=== PATIENT | female | born 1975 | race Caucasian/White ===

== ENCOUNTER 2020-05-24 08:34 | Emergency (ER) | payer OTHER, SELFPAY ==
[2020-05-24 08:40] VITALS: BP 128/71; PULSE 63; RESP 22; TEMP 37; O2SAT 100; BMI 27.4
--- NOTE | 2020-05-24 08:58 | DI.RAD.S_ITS ---
PROCEDURE: XR CHEST 1V INDICATIONS: chest pain TECHNIQUE: One view of the chest was acquired. COMPARISON: [facility], , CHEST 1VW (PORTABLE), 10/23/2011, 15:04. FINDINGS: Surgical changes and devices: None. Lungs and pleura: Lungs are clear. No pleural effusions or pneumothorax. Mediastinum: Mediastinal contours appear normal. Heart size is normal. Bones and chest wall: No suspicious bony lesions. There is calcific tendinitis noted in the right shoulder. IMPRESSION: 1. No acute cardiopulmonary disease. Dictated by: Oj Esteban M.D. on 05/24/2020 at 9:26 Approved by: Oj Esteban M.D. on 05/24/2020 at 9:27
[2020-05-24 09:06] LABS: Add Manual Diff / Slide Review NO; Basophils Absolute Auto 0 /uL (0-100); Basophils Percent Auto 0.5 % (0-2); Eosinophils Absolute Auto 100 /uL (0-450); Eosinophils Percent Auto 1.5 % (2-4); Hematocrit 39.5 % (36-46); Hemoglobin 13.7 g/dL (12.0-16.0); Lymphocytes Absolute Auto 1800 /uL (1100-4500); Lymphocytes Percent Auto 29.8 % (25-40); Mean Corpuscular HGB Conc 34.6 % (30-36); Mean Corpuscular Volume 89.6 fL (80-100); Monocytes Absolute Auto 500 /uL (0-900); Monocytes Percent Auto 9.2 % (3-14); Neutrophils Absolute Auto 3500 /uL (1500-7000); Platelet Count 187 X10^3/uL (150-400); Red Blood Cell Count 4.41 X10^6/uL (4.0-5.2); Red Cell Distribution Width 13.3 % (11.6-14.8)
[2020-05-24 09:07] LABS: Prothrombin Time 11.3 SECONDS (10.1-12.7)
[2020-05-24 09:09] LABS: PTT Partial Thromboplastin Tim 36 SECONDS (26.4-36.2)
[2020-05-24 09:12] LABS: Alanine Aminotransferase 35 IU/L (<35); Albumin 4.3 g/dL (3.5-5.0); Albumin Globulin Ratio 1.3 (1.0-2.8); Alkaline Phosphatase 90 U/L (38-126); Aspartate Aminotransferase 22 IU/L (14-36); BUN Creatinine Ratio 16.8 (6-22); Bilirubin Total 0.4 mg/dL (0.2-1.3); Blood Urea Nitrogen 16 mg/dL (7-17); Calcium 8.9 mg/dL (8.4-10.2); Carbon Dioxide 23 mmol/L (22-32); Chloride 107 mmol/L (98-107); Creatine Kinase 58 U/L (30-135); Estimated Glomerular Filt Rate > 60.0 mL/min (>60); Globulin 3.4 g/dL (1.7-4.1); Glucose 96 mg/dL (70-100); HEMOLYSIS < 15 (0-50); Lipase 83 U/L (23-300); Potassium 3.9 mmol/L (3.4-5.1); Sodium 138 mmol/L (137-145); Total Protein 7.7 g/dL (6.3-8.2)
[2020-05-24 09:20] VITALS: PULSE 62; O2SAT 100
[2020-05-24] MEDS: KETOROLAC 60 MG/2 ML VIAL 15 MG IV (09:20)
[2020-05-24 09:23] LABS: Troponin I < 0.012 ng/mL (0.01-0.034)
--- NOTE | 2020-05-24 09:24 | ED.CHESTPAIN ---
HPI - Chest Pain General Chief Complaint: Chest Pain Stated Complaint: chest pain Time Seen by Provider: 05/24/20 08:53 Source: patient Mode of arrival: Family Vehicle Limitations: no limitations History of Present Illness HPI narrative: 44-year-old woman with a history of hypertension, migraines and mild asthma presents with sharp left-sided chest pain. She 1st noted when she got up this morning at 3:00 a.m. for her usual work shift. She notes sharp pain that begins from the sternum and radiates out around her left breast but not to her back or her neck. She notes some dull discomfort radiating down the left shoulder and left arm. Pain is worsened with taking a deep breath but not specifically with position. She notes increasing dyspnea and milder diaphoresis over the course of the morning. 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 She does note that she has had similar symptoms over the past 2 months (2 episodes), but both times resolved within a few minutes. She also notes that the exertion of walking to her car in into the emergency department has not caused any distress. She is screened every 2-3 weeks for Covid at work and has been negative repeatedly with no significant Covid symptoms today Related Data Home Medications Medication Instructions Recorded Confirmed albuterol sulfate 90 mcg/actuation 2 puff INHALATION Q4-6H PRN 03/16/18 03/16/18 aerosol inhaler sumatriptan succinate 100 mg tablet 100 mg PO ONCE 03/16/18 03/16/18 lisinopril 10 mg tablet 10 mg PO DAILY 06/07/18 06/07/18 Previous Rx's Medication Instructions Recorded naratriptan 2.5 mg tablet 2.5 mg PO .COMPLEX PRN #12 tab 06/07/18 erenumab-aooe 140 mg/mL 140 mg SUBCUT QMONTH #1 ml 05/25/19 subcutaneous auto-injector topiramate 25 mg tablet 25 mg PO DAILY 7 Days #120 tab 10/30/19 Allergies Allergy/AdvReac Type Severity Reaction Status Date / Time Penicillins Allergy Mild Hives/Rash Verified 10/30/19 13:14 Review of Systems Review of Systems Narrative: Pertinent positive and negative findings as per HPI Remainder of review of systems is otherwise unremarkable for Constitutional: Fevers, chills, weakness ENT: No sore throat, neck pain, ear pain GI: Nausea, vomiting, diarrhea, change in bowel habits, black or bloody stools : Dysuria, hematuria, flank pain MS: Muscle weakness, numbness, joint swelling or warmth Skin: Rashes, nonhealing lesions Neuro: Syncope, dizziness, tingling Patient History Medical History Addiction (Inactive) Depression (Acute) Hypertension (Acute) Migraine (Acute) Social History Smoking Status: Current every day smoker Smoking Status: Current every day smoker tobacco type: vaping alcohol intake frequency: 0-2 drinks per day Substance Use Type: does not use Exam Narrative Exam Narrative: General: Healthy appearing, in no acute distress. Able to give a complete and coherent history. Well-nourished well-developed HEENT: Moist mucous membranes, normal sclera with reactive pupils, Neck: No JVD, supple Respiratory: Lungs are clear to auscultation, no wheezing no rales no rhonchi. Full and symmetrical air movement Chest: Mild tenderness along the costochondral margins left side of the sternum. Left breast is nontender no redness with no nipple discharge. Cardiac: Regular rate and rhythm no murmurs no bruits Abdomen: Soft nontender good bowel tones, no flank pain Skin: Warm and dry, no rashes Neurologic: Grossly neurologically intact with no obvious asymmetries or abnormalities Extremities: No trauma, well perfused Psych: Cooperative, appropriate insight and affect Initial Vital Signs Initial Vital Signs: Vital Signs Temperature 98.6 F 05/24/20 08:40 Pulse Rate 63 05/24/20 08:40 Respiratory Rate 22 05/24/20 08:40 Blood Pressure 128/71 05/24/20 08:40 Pulse Oximetry 100 05/24/20 08:40 Course Orders Ordered: ED Orders 05/24/20 08:50 Complete Blood Count AUTO DIFF Stat Comprehensive Metabolic Panel Stat Lipase Stat Partial Thromboplastin Time Stat Prothrombin Time INR Stat Troponin & CK Cardiac Panel Stat 05/24/20 08:58 XR chest 1V Stat EKG-12 Lead Stat Discontinued Medications Ketorolac Tromethamine (Toradol) 15 mg IV NOW ONE Stop: 05/24/20 09:08 Last Admin: 05/24/20 09:20 Dose: 15 mg Documented by: PERNELL Vital Signs Vital signs: Vital Signs - 8 hr 05/24/20 08:40 Temperature 98.6 F Pulse Rate 63 Respiratory Rate 22 Blood Pressure 128/71 Pulse Oximetry 100 MDM - Chest Pain Medical Records Data Attestation: I reviewed the patient's medical records. Lab Data Attestation: I reviewed the patient's lab results. Result diagrams: 05/24/20 08:50 05/24/20 08:50 Labs: Lab Results 05/24/20 05/24/20 05/24/20 Range/Units 08:50 08:50 08:50 WBC 6.0 (4.5-11.0) X10^3/uL RBC 4.41 (4.0-5.2) X10^6/uL Hgb 13.7 (12.0-16.0) g/dL Hct 39.5 (36-46) % MCV 89.6 (80-100) fL MCH 31.0 (26-34) PG MCHC 34.6 (30-36) % RDW 13.3 (11.6-14.8) % Plt Count 187 (150-400) X10^3/uL Neut % (Auto) 59.0 (50-75) % Lymph % (Auto) 29.8 (25-40) % [place] % (Auto) 9.2 (3-14) % Eos % (Auto) 1.5 L (2-4) % Baso % (Auto) 0.5 (0-2) % Neut # (Auto) 3500 (0745-8182) /uL Lymph # (Auto) 1800 (2910-3788) /uL [place] # (Auto) 500 (0-900) /uL Eos # (Auto) 100 (0-450) /uL Baso # (Auto) 0 (0-100) /uL PT 11.3 (10.1-12.7) SECONDS INR 1.0 (0.9-1.3) APTT 36 (26.4-36.2) SECONDS Sodium 138 (137-145) mmol/L Potassium 3.9 (3.4-5.1) mmol/L Chloride 107 (98-107) mmol/L Carbon Dioxide 23 (22-32) mmol/L BUN 16 (7-17) mg/dL Creatinine 0.95 (0.52-1.04) mg/dL Estimated GFR > 60.0 (>60) mL/min BUN/Creatinine Ratio 16.8 (6-22) Glucose 96 (70-100) mg/dL Calcium 8.9 (8.4-10.2) mg/dL Total Bilirubin 0.4 (0.2-1.3) mg/dL AST 22 (14-36) IU/L ALT 35 H (<35) IU/L Alkaline Phosphatase 90 (38-126) U/L Total Creatine Kinase 58 (30-135) U/L CK-MB (CK-2) TNP CK-MB (CK-2) Rel Index TNP Troponin I < 0.012 (0.01-0.034) ng/mL Total Protein 7.7 (6.3-8.2) g/dL Albumin 4.3 (3.5-5.0) g/dL Globulin 3.4 (1.7-4.1) g/dL Albumin/Globulin Ratio 1.3 (1.0-2.8) Lipase 83 (23-300) U/L Negative troponin with 6 hours of symptoms Imaging Data Chest x-ray: Radiologist's Impression: FINDINGS: Surgical changes and devices: None. Lungs and pleura: Lungs are clear. No pleural effusions or pneumothorax. Mediastinum: Mediastinal contours appear normal. Heart size is normal. Bones and chest wall: No suspicious bony lesions. There is calcific tendinitis noted in the right shoulder. IMPRESSION: 1. No acute cardiopulmonary disease. ECG Data Attestation: I personally reviewed and interpreted this ECG as follows: Interpretation: Sinus rhythm at 63 beats per minute Normal intervals, normal axis No ischemia MDM Narrative Medical decision making narrative: 44-year-old woman with 6 hours of sharp chest pain worse with a deep breath somewhat reproducible with manipulation of the costochondral margins on the left side. Negative cardiac workup. Most likely explanation at this point is musculoskeletal pain/costochondritis. No evidence of acute coronary syndrome pneumothorax, acute infection, widened mediastinum or cardiac arrhythmia. She is feeling better after the Toradol and no longer has any pain with deep breathing. Patient is safe for home discharge Discharge Plan Departure Patient Disposition: Home Clinical Impression: Costalchondritis Instructions: DI for Costochondritis Activity Restrictions/Additional Instructions: Thank you for coming in today Your workup was very reassuring. There is no sign of a heart attack or heart attack like syndrome, no pneumonia, no collapsed lung or other concerning findings in your chest. You likely do have costochondritis, an inflammation at the spot where the rib attaches to the breast bone. Using 400 mg of ibuprofen (2 [id number] pills) and 1 Tylenol every 6 hours can be very helpful in controlling pain. I hope you feel better quickly Prescriptions: No Action Aimovig Autoinjector 140 mg/mL auto-injector 140 mg SUBCUT QMONTH Qty: 1 RF: 5 sumatriptan succinate [Imitrex] 100 mg tablet 100 mg PO ONCE RF: 0 albuterol sulfate [ProAir HFA] 90 mcg/actuation HFA aerosol inhaler 2 puff INHALATION Q4-6H PRNRF: 0 topiramate 25 mg tablet 25 mg PO DAILY 7 Days Qty: 120 RF: 2 lisinopril 10 mg tablet 10 mg PO DAILY RF: 0 naratriptan 2.5 mg tablet 2.5 mg PO .COMPLEX PRN (Reason: migraine headache) Qty: 12 RF: 11 Referrals: Jana Zhang MD [Primary Care Provider] -
[2020-05-24 09:30] VITALS: BP 113/73; PULSE 57; O2SAT 100
== END 2020-05-24 09:58 | disposition home or self-care (01) ==
PROVIDERS: Emergency Provider Emergency Medicine; PCP Family Medicine
DX: M94.0 Chondrocostal junction syndrome [Tietze] (principal)
CPT/HCPCS: 36415; 71045; 80053; 82550; 83690; 84484; 85025; 85610; 85730; 93005; 96374; 99284; J1885